=== PATIENT | male | born 1990 | race African-American/Black ===

== ENCOUNTER → 2019-11-20 | Outpatient (CLI) | payer OTHER ==
--- NOTE | 2019-11-20 10:59 | 2DMMODE ---
[place] [address] 2 D/M-MODE ECHOCARDIOGRAM Name: RAKEL ARAIZA Room: [facility]#: [id number] Admission: 11/20/19 Attend Phys: Rian Ashley MD Discharge: Date of : 86 Date of Service: 11/20/19 1058 Report #: [id number] THIS REPORT FOR: cc: Dionte Schaffer Herbert E. DO Blick, David R. MD [facility] ~ APPROVED REPORT Study performed: 11/20/2019 09:57:43 EXAM: Comprehensive 2D, Doppler, and color-flow Echocardiogram Patient Location: Out-Patient BSA: 1.82 HR: 96 bpm BP: 162/98 mmHg Other Information Study Quality: Good Indications Tachycardia 2D Dimensions IVSd: 11.05 (7-11mm) LVOT Diam: 20.38 (18-24mm) LVDd: 49.83 mm PWd: 11.58 (7-11mm) Ascending Ao: 28.72 (22-36mm) LVDs: 32.58 (25-40mm) Aortic Root: 27.25 mm Volumes Left Atrial Volume (Systole) LA ESV Index: 14.50 mL/m2 Aortic Valve AoV Peak Giovanni.: 1.38 m/s AO Peak Gr.: 7.56 mmHg LVOT Max P.55 mmHg AO Mean Gr.: 4.48 mmHg LVOT Mean P.57 mmHg LVOT Max V: 0.94 m/s AO V2 VTI: 22.02 cm LVOT Mean V: 0.57 m/s FREDI (VTI): 2.40 cm2 LVOT V1 VTI: 16.21 cm Mitral Valve E/A Ratio: 0.87 [place] [address] 2 D/M-MODE ECHOCARDIOGRAM Name: RAKEL ARAIZA Room: [facility]#: [id number] Admission: 11/20/19 Attend Phys: Rian Ashley MD Discharge: Date of : 86 Date of Service: 11/20/19 1058 Report #: [id number] MV Decel. Time: 203.05 ms MV E Max Giovanni.: 0.73 m/s MV PHT: 58.88 ms MVA (PHT): 3.74 cm2 TDI E/Lateral E': 4.29 E/Medial E': 5.62 Medial E' Giovanni.: 0.13 m/s Lateral E' Giovanni.: 0.17 m/s Pulmonary Valve PV Peak Giovanni.: 0.90 m/s PV Peak Gr.: 3.27 mmHg Left Ventricle The left ventricle is normal size. There is normal LV segmental wall motion. There is normal left ventricular wall thickness. Left ventricular systolic function is normal. The left ventricular ejection fraction is within the normal range. LVEF is 55-60%. Grade I - abnormal relaxation pattern. Right Ventricle The right ventricle is normal size. The right ventricular systolic function is normal. Atria The left atrium size is normal. The right atrium size is normal. Aortic Valve The aortic valve is normal in structure. No aortic regurgitation is present. There is no aortic valvular stenosis. Mitral Valve The mitral valve is normal in structure. There is no mitral valve regurgitation noted. No evidence of mitral valve stenosis. Tricuspid Valve The tricuspid valve is normal in structure. There is trace tricuspid valve regurgitation noted. Pulmonic Valve The pulmonary valve is normal in structure. Mild pulmonic regurgitation. Great Vessels The aortic root is normal in size. IVC [place] [address] 2 D/M-MODE ECHOCARDIOGRAM Name: RAKEL ARAIZA Room: [facility]#: [id number] Admission: 11/20/19 Attend Phys: Rian Ashley MD Discharge: Date of : 86 Date of Service: 11/20/19 1058 Report #: [id number] collapses >50% with inspiration. Pericardium There is no pericardial effusion. <Conclusion> Left ventricular systolic function is normal. The left ventricular ejection fraction is within the normal range. <ELECTRONICALLY SIGNED> By: James Blunt MD, FAC 11/20/19 1058 1058 James Blunt MD, [facility] /INF
== END ==
LOC: M.CRD 09:29
DX: I37.1 Nonrheumatic pulmonary valve insufficiency (principal); I25.9 Chronic ischemic heart disease, unspecified